=== PATIENT | female | born 2005 | race Caucasian/White ===

== ENCOUNTER 2023-11-18 15:45 | Emergency (ER) | payer BC ==
[~2023-11-18] VITALS: Ht 165.1 cm; Wt 62.7 kg
[2023-11-18 15:50] VITALS: BP 108/69; TEMP 97.6
[2023-11-18] MEDS ORDERED: ZITHROMAX Z PA250 MG PO (17:00)
[2023-11-18 17:11] VITALS: PULSE 61
== END 2023-11-18 17:11 | disposition home or self-care (01) ==
LOC: COL.ER 15:45
DX: J45.909 Unspecified asthma, uncomplicated (principal)